=== PATIENT | female | born 1990 | race Caucasian/White ===

== ENCOUNTER 2018-04-22 02:08 | Emergency (ER) | payer MEDICAID ==
[~2018-04-22] VITALS: Ht 162.6 cm; Wt 99.1 kg
[2018-04-22 02:12] VITALS: Ht 162.6 cm; Wt 99.1 kg
[2018-04-22] MEDS ORDERED: PROZAC40 MG PO (02:15)
[2018-04-22] MEDS ORDERED: NEURONTIN 300300 MG PO (02:15)
[2018-04-22 02:50] LABS: BASOPHILS 0.4 % (0-2); EOSINOPHILS 4.9 % (0-7); HEMOGLOBIN 13.2 g/dL (12-16); IMMATURE GRANULOCYTES 0.1 % (0-5); LYMPHOCYTES 38.1 % (15-50); MCH 31.2 pg (26.0-34.0); MCHC 34.7 g/dL (31.0-37.0); MCV 89.8 fL (80.0-100.0); MEAN PLATELET VOLUME 10.2 fL (7.4-10.4); NEUTROPHILS 49.5 % (40-80); PLATELET COUNT 246 10x3/uL (130-400); RBC 4.23 10x6/uL (4.00-5.40); RDW 12.7 % (11.5-14.5); WBC 8.2 10x3/uL (4.8-10.8)
[2018-04-22 02:57] LABS: HCG URINE NEGATIVE (NEGATIVE)
[2018-04-22 03:08] LABS: ALBUMIN 3.4 g/dL (3.4-5.0); ALKALINE PHOSPHATASE 91 U/L (46-116); ALT (SGPT) 96 U/L (10-68); BILIRUBIN - TOTAL 0.13 mg/dL (0.2-1.3); CALC OSMOLALITY 282 mosm/kg (275-300); CALCIUM 9.2 mg/dL (8.5-10.1); CARBON DIOXIDE 27.9 mmol/L (21.0-32.0); CHLORIDE - SERUM 106 mmol/L (98-107); CREATININE - SERUM 1.1 mg/dL (0.6-1.3); GLUCOSE 95 mg/dL (74-106); POTASSIUM - SERUM 3.8 mmol/L (3.5-5.1); PROTEIN - SERUM 7.2 g/dL (6.4-8.2); SODIUM 142 mmol/L (136-145); UREA NITROGEN 12 mg/dL (7-18); eGFR NON AFRICAN AMERICAN 64 mL/min (90-120)
[2018-04-22 03:11] LABS: AMYLASE - SERUM 48 U/L (25-115); LIPASE 187 U/L (73-393)
[2018-04-22 03:12] LABS: APPEARANCE HAZY (CLEAR); BILIRUBIN NEGATIVE (NEGATIVE); COLOR YELLOW (YELLOW); GLUCOSE NEGATIVE (NEGATIVE); KETONE NEGATIVE (NEGATIVE); NITRITE NEGATIVE (NEGATIVE); PROTEIN NEGATIVE (NEGATIVE); UROBILINOGEN NORMAL (NORMAL)
[2018-04-22 03:12] LABS: TROPONIN-I < 0.017 ng/mL (0.000-0.060)
[2018-04-22 03:14] LABS: BACTERIA FEW /hpf (NONE SEEN); EPITHELIAL CELLS 0-5 /hpf (0-5); RED CELLS - URINE 0-5 /hpf (0-5); WHITE CELLS - URINE 0-5 /hpf (0-5)
[2018-04-22 06:15] VITALS: BP 117/78
== END 2018-04-22 05:30 | disposition home or self-care (01) ==
LOC: D.ER 02:08 → EDBD 02:08 → D.ER 05:30
PROVIDERS: Family Medicine
DX: K80.50 Calculus of bile duct without cholangitis or cholecystitis without obstruction (principal); K80.20 Calculus of gallbladder without cholecystitis without obstruction; R10.11 Right upper quadrant pain; R11.10 Vomiting, unspecified; F17.200 Nicotine dependence, unspecified, uncomplicated